=== PATIENT | female | born 1960 | race African-American/Black ===

== ENCOUNTER 2016-04-18 07:36 | Outpatient (CLI) | payer BC ==
--- NOTE | 2016-04-18 09:11 | Mammography Report ---
IMPLANT MAMMOGRAM with CAD: Comparison is made to previous study on April 07, 2015. Bilateral breast imaging was done with standard and displacement technique. Parenchyma is symmetrically seen ventral to each implant. The implant contours are smooth. No suspicious findings or secondary signs of malignancy are seen. CONCLUSION: Negative implant mammogram. RECOMMENDATION: Routine follow-up. BI-RADS CATEGORY: 1 = Negative ACR BI-RADS MAMMOGRAPHIC CODES: 0 = Needs additional imaging evaluation; 1 = Negative; 2 = Benign; 3 = Probably benign; 4 = Suspicious; 5 = Malignant; 6 = Known biopsy-proven malignancy COMMENT: 1. Dense breast tissue, i.e., adenosis, fibrocystic changes, etc., may obscure an underlying neoplasm. 2. Approximately 10% of cancers are not detected with mammography. 3. A negative mammography report should not delay biopsy if a clinically suspicious mass is present. Comment: Patient follow up letters are generated in [facility].
== END 2016-04-18 07:37 | disposition home or self-care (01) ==
LOC: MAMMO 07:36
PROVIDERS: ATTEND Internal Medicine
DX: Z12.31 Encounter for screening mammogram for malignant neoplasm of breast (principal)
CPT/HCPCS: 77067; G0202

== ENCOUNTER 2017-04-18 07:35 | Outpatient (CLI) | payer BC ==
--- NOTE | 2017-04-18 08:39 | Mammography Report ---
IMPLANT MAMMOGRAM: Bilateral breast imaging was done with standard and displacement technique. The breast parenchyma is generally fatty replaced and is symmetrically seen ventral to each implant. The submuscular implant contours are smooth. No suspicious findings or secondary signs of malignancy are seen. No interval change identified when compared to prior exams dating back to March 2015. CAD was utilized. CONCLUSION: Negative implant mammogram. RECOMMENDATION: Routine follow-up. BI-RADS CATEGORY: 1 = Negative ACR BI-RADS MAMMOGRAPHIC CODES: 0 = Needs additional imaging evaluation; 1 = Negative; 2 = Benign; 3 = Probably benign; 4 = Suspicious; 5 = Malignant; 6 = Known biopsy-proven malignancy COMMENT: 1. Dense breast tissue, i.e., adenosis, fibrocystic changes, etc., may obscure an underlying neoplasm. 2. Approximately 10% of cancers are not detected with mammography. 3. A negative mammography report should not delay biopsy if a clinically suspicious mass is present. COMMENT: Patient follow-up letters are generated in [email or web address].
== END 2017-04-18 07:36 | disposition home or self-care (01) ==
LOC: MAMMO 07:35
PROVIDERS: ATTEND Internal Medicine
DX: Z12.31 Encounter for screening mammogram for malignant neoplasm of breast (principal); Z98.82 Breast implant status
CPT/HCPCS: 77067

== ENCOUNTER 2017-05-23 12:22 | Emergency (ER) | payer BC ==
[2017-05-23 13:16] LABS: Basophils % (Auto) 0.3 % (0.0-1.8); Eosinophils # (Auto) 0.2 K/mm3 (0.0-0.4); Eosinophils % (Auto) 3.3 % (0.0-4.3); Hematocrit 41.4 % (30.3-42.9); Hemoglobin 13.5 gm/dl (10.1-14.3); Lymphocytes # (Auto) 2.5 K/mm3 (1.2-5.4); Lymphocytes % (Auto) 35.9 % (13.4-35.0); Mean Corpuscular HGB Conc 33 % (30-34); Mean Corpuscular Hemoglobin 30 pg (28-32); Mean Corpuscular Volume 93 fl (79-97); Monocytes # (Auto) 0.6 K/mm3 (0.0-0.8); Monocytes % (Auto) 8.6 % (0.0-7.3); Platelet Count 303 K/mm3 (140-440); Red Blood Count 4.45 M/mm3 (3.65-5.03); Red Cell Distribution Width 13.4 % (13.2-15.2)
[2017-05-23 13:27] LABS: INR 0.88 (0.87-1.13)
[2017-05-23 13:28] LABS: Partial Thromboplastin Time 32.3 Sec. (24.2-36.6)
[2017-05-23 13:36] LABS: Alanine Aminotransferase 12 units/L (7-56); Albumin 3.7 g/dL (3.9-5); BUN/Creatinine Ratio 26; Blood Urea Nitrogen 18 mg/dL (7-17); Calcium 9.1 mg/dL (8.4-10.2); Hemolysis Index 8
[2017-05-23 13:39] LABS: Bilirubin,Direct < 0.2 mg/dL (0-0.2)
--- NOTE | 2017-05-23 13:56 | XRay Report ---
AP CHEST: HISTORY: chest pain AP view of the chest demonstrates a normal mediastinal and cardiac contour with clear lungs and normal bony and soft tissue structures. IMPRESSION: Unremarkable AP chest.
--- NOTE | 2017-05-23 14:09 | Emergency Department Report ---
ED General Adult HPI - General Chief complaint: Arrhythmia/Palpitations Stated complaint: CHEST PAIN Time Seen by Provider: 05/23/17 12:38 Source: patient Mode of arrival: Ambulatory Limitations: No Limitations - History of Present Illness Initial comments: Patient reports having tachycardia since last night. She states he's had some difficulty sleeping but otherwise does not complain of any substantial chest pain or shortness of breath. She arrives here with SVT at 170. Her states that back in approximately 1999 she had a similar episode. She does not have a hand alterations tailor. She states that she has never been found to have anything wrong with her heart. She has a history of hypothyroidism. She hasn't had a change in her medication for the last 7 months. She doesn't report any other specific change or symptoms. -: Sudden Associated Symptoms: denies other symptoms - Related Data Home Medications Medication Instructions Recorded Confirmed Last Taken Benzonatate 100 mg PO TID 11/22/15 11/22/15 11/22/15 06:00 Levothyroxine [Synthroid] 75 mcg PO QAM 11/22/15 11/22/15 11/22/15 06:00 NIFEdipine [Nifedipine ER] 30 mg PO DAILY 11/22/15 11/22/15 11/21/15 Prednisone 10 mg PO BID 11/22/15 11/22/15 11/22/15 06:00 Allergies Allergy/AdvReac Type Severity Reaction Status Date / Time No Known Allergies Allergy Verified 05/23/17 12:30 ED Review of Systems ROS: Stated complaint: CHEST PAIN Other details as noted in HPI Constitutional: denies: chills, fever Eyes: denies: eye pain, eye discharge, vision change ENT: denies: ear pain, throat pain Respiratory: denies: cough, shortness of breath, wheezing Cardiovascular: other (tachycardia). denies: chest pain, palpitations Endocrine: no symptoms reported Gastrointestinal: denies: abdominal pain, nausea, diarrhea Genitourinary: denies: urgency, dysuria, discharge Musculoskeletal: denies: back pain, joint swelling, arthralgia Skin: denies: rash, lesions Neurological: denies: headache, weakness, paresthesias Psychiatric: denies: anxiety, depression Hematological/Lymphatic: denies: easy bleeding, easy bruising ED Past Medical Hx - Past Medical History Hx Hypertension: Yes Additional medical history: Hypothyroidism, SVT - Social History Smoking Status: Never Smoker - Medications Home Medications: Home Medications Medication Instructions Recorded Confirmed Last Taken Type Benzonatate 100 mg PO TID 11/22/15 11/22/15 11/22/15 06:00 History Levothyroxine [Synthroid] 75 mcg PO QAM 11/22/15 11/22/15 11/22/15 06:00 History NIFEdipine [Nifedipine ER] 30 mg PO DAILY 11/22/15 11/22/15 11/21/15 History Prednisone 10 mg PO BID 11/22/15 11/22/15 11/22/15 06:00 History ED Physical Exam - General Limitations: No Limitations General appearance: alert, in no apparent distress - Head Head exam: Present: atraumatic, normocephalic - Eye Eye exam: Present: normal appearance - ENT ENT exam: Present: mucous membranes moist - Neck Neck exam: Present: normal inspection - Respiratory Respiratory exam: Present: normal lung sounds bilaterally. Absent: respiratory distress - Cardiovascular Cardiovascular Exam: Present: tachycardia (regular rhythm). Absent: systolic murmur, diastolic murmur, rubs, gallop - GI/Abdominal GI/Abdominal exam: Present: soft, normal bowel sounds. Absent: distended, tenderness, guarding, rebound, rigid - Extremities Exam Extremities exam: Present: normal inspection - Back Exam Back exam: Present: normal inspection - Neurological Exam Neurological exam: Present: alert, oriented X3, CN II-XII intact. Absent: motor sensory deficit - Psychiatric Psychiatric exam: Present: normal affect, normal mood - Skin Skin exam: Present: warm, dry, intact, normal color. Absent: rash ED Course Vital Signs 05/23/17 12:30 Temperature 97.7 F Pulse Rate 173 H Respiratory 24 Rate O2 Sat by Pulse 100 Oximetry - Reevaluation(s) Reevaluation #1: Patient is given 6 mg of adenosine which successfully converted her back to sinus rhythm. She was observed for a few hours. She had no recurrence. She remained asymptomatic. 05/23/17 15:23 ED Medical Decision Making - Lab Data Result diagrams: 05/23/17 13:02 05/23/17 13:02 Laboratory Results - last 24 hr 05/23/17 05/23/17 05/23/17 13:02 13:02 13:02 WBC 6.8 RBC 4.45 Hgb 13.5 Hct 41.4 MCV 93 MCH 30 MCHC 33 RDW 13.4 Plt Count 303 Lymph % (Auto) 35.9 H Kane % (Auto) 8.6 H Eos % (Auto) 3.3 Baso % (Auto) 0.3 Lymph # 2.5 Kane # 0.6 Eos # 0.2 Baso # 0.0 Seg Neutrophils % 51.9 Seg Neutrophils # 3.5 PT 12.4 INR 0.88 APTT 32.3 Sodium 139 Potassium 4.3 Chloride 101.3 Carbon Dioxide 24 Anion Gap 18 BUN 18 H Creatinine 0.7 Estimated GFR > 60 BUN/Creatinine Ratio 26 Glucose 125 H Calcium 9.1 Total Bilirubin 0.40 Direct Bilirubin < 0.2 AST 13 ALT 12 Alkaline Phosphatase 80 Troponin T < 0.010 Total Protein 7.4 Albumin 3.7 L Albumin/Globulin Ratio 1.0 Laboratory Results - last 24 hr 05/23/17 05/23/17 05/23/17 13:02 13:02 13:02 WBC 6.8 RBC 4.45 Hgb 13.5 Hct 41.4 MCV 93 MCH 30 MCHC 33 RDW 13.4 Plt Count 303 Lymph % (Auto) 35.9 H Kane % (Auto) 8.6 H Eos % (Auto) 3.3 Baso % (Auto) 0.3 Lymph # 2.5 Kane # 0.6 Eos # 0.2 Baso # 0.0 Seg Neutrophils % 51.9 Seg Neutrophils # 3.5 PT 12.4 INR 0.88 APTT 32.3 Sodium 139 Potassium 4.3 Chloride 101.3 Carbon Dioxide 24 Anion Gap 18 BUN 18 H Creatinine 0.7 Estimated GFR > 60 BUN/Creatinine Ratio 26 Glucose 125 H Calcium 9.1 Total Bilirubin 0.40 Direct Bilirubin < 0.2 AST 13 ALT 12 Alkaline Phosphatase 80 Troponin T < 0.010 Total Protein 7.4 Albumin 3.7 L Albumin/Globulin Ratio 1.0 TSH Free T4 05/23/17 13:02 WBC RBC Hgb Hct MCV MCH MCHC RDW Plt Count Lymph % (Auto) Kane % (Auto) Eos % (Auto) Baso % (Auto) Lymph # Kane # Eos # Baso # Seg Neutrophils % Seg Neutrophils # PT INR APTT Sodium Potassium Chloride Carbon Dioxide Anion Gap BUN Creatinine Estimated GFR BUN/Creatinine Ratio Glucose Calcium Total Bilirubin Direct Bilirubin AST ALT Alkaline Phosphatase Troponin T Total Protein Albumin Albumin/Globulin Ratio TSH 0.991 Free T4 1.48 H - EKG Data -: EKG Interpreted by Me EKG shows normal: sinus rhythm, axis, intervals, QRS complexes, ST-T waves Rate: normal - EKG Data Interpretation: no acute changes Initial EKG showed SVT at 170. Post-cardioversion EKG showed normal sinus rhythm without evidence of ischemia. 05/23/17 15:23 - Radiology Data Radiology results: report reviewed (no acute process chest x-ray) Critical care attestation.: If time is entered above; I have spent that time in minutes in the direct care of this critically ill patient, excluding procedure time. ED Disposition Clinical Impression: Supraventricular tachycardia Disposition: - TO HOME OR SELFCARE Is pt being admited?: No Does the pt Need Aspirin: No Condition: Stable Instructions: Supraventricular Tachycardia (ED) Additional Instructions: Return to the emergency department any recurrence or acute change her symptom. Follow-up with hand alterations tailor. See referral. Referrals: ALEXANDRIA MACARIO MD [Staff Physician] - 3-5 Days Time of Disposition: 15:24
[2017-05-23 14:16] LABS: Free T4 (Free Thyroxine) 1.48 ng/dL (0.76-1.46)
[2017-05-23 16:02] VITALS: BP 142/96
== END 2017-05-23 15:55 | disposition home or self-care (01) ==
LOC: ED 12:22
DX: I47.1 Supraventricular tachycardia (principal); I10 Essential (primary) hypertension; E03.9 Hypothyroidism, unspecified
CPT/HCPCS: 36415; 71045; 80048; 80074; 84439; 84443; 84484; 85025; 85610; 85730; 93005; 93010; 96374; 99284; J0153

== ENCOUNTER 2017-06-04 07:41 | Outpatient (CLI) | payer BC ==
--- NOTE | 2017-06-04 13:30 | Treadmill Report ---
This is a 56-year-old female who underwent stress testing with myocardial perfusion images obtained at rest and post-stress test. Myocardial images performed using technetium pyrophosphate were obtained during the rest followed by exercise test and post-stress images were obtained. Myocardial perfusion images showed uniform distribution of the tracer in both resting and post-stress images. Imaging shows normal perfusion. Gated post-stress SPECT images were obtained, which showed normal thickening and normal size of the left ventricle with calculated ejection fraction of 71%. FINAL IMPRESSION: 1. Normal perfusion images post-stress and at rest. 2. Normal left ventricular systolic function with a calculated EF of 71% post-stress. JOB# [id number] STACEY/JUAN
== END 2017-06-04 07:42 | disposition home or self-care (01) ==
LOC: ECHO 07:41
PROVIDERS: ATTEND Internal Medicine
DX: I08.1 Rheumatic disorders of both mitral and tricuspid valves (principal); I10 Essential (primary) hypertension; R94.31 Abnormal electrocardiogram [ECG] [EKG]
CPT/HCPCS: 78452; 93017; 93306; A9502

== ENCOUNTER 2018-04-20 07:41 | Outpatient (CLI) | payer BC ==
--- NOTE | 2018-04-20 13:11 | Mammography Report ---
BILATERAL DIGITAL AUGMENTED SCREENING MAMMOGRAM with CAD: 04/20/18 07:41:00 CLINICAL: Routine screening. COMPARISON:04/18/17 FINDINGS: Screening views with and without implant displacement demonstrate bilateral scattered fibroglandular densities. No mass, architectural distortion or suspicious calcifications. Intact subpectoral implants. IMPRESSION: No mammographic evidence of malignancy. BI-RADS CATEGORY: 2 -- Benign RECOMMENDATION: Routine mammographic screening in one year. ACR BI-RADS MAMMOGRAPHIC CODES: 0 = Needs additional imaging evaluation; 1 = Negative; 2 = Benign; 3 = Probably benign; 4 = Suspicious; 5 = Malignant; 6 = Known biopsy-proven malignancy COMMENT: 1. Dense breast tissue, i.e., adenosis, fibrocystic changes, etc., may obscure an underlying neoplasm. 2. Approximately 10% of cancers are not detected with mammography. 3. A negative mammography report should not delay biopsy if a clinically suspicious mass is present. COMMENT: Patient follow-up letters are generated via our [employer] application.
== END 2018-04-20 07:42 | disposition home or self-care (01) ==
LOC: MAMMO 07:41
PROVIDERS: ATTEND Internal Medicine
DX: Z12.31 Encounter for screening mammogram for malignant neoplasm of breast (principal); I10 Essential (primary) hypertension; E78.00 Pure hypercholesterolemia, unspecified; E03.9 Hypothyroidism, unspecified
CPT/HCPCS: 77067

== ENCOUNTER 2018-11-22 18:57 | Emergency (ER) | payer BC ==
--- NOTE | 2018-11-22 19:32 | Event Note ---
ED Screening Note Date of service: 11/22/18 Time: 19:28 ED Screening Note: This is a 58 y.o. F. that presents to the ER with cough, fever, and body aches for 3 days. Reports cough fro 6 months intermittently. Taking analgesics without improvement of symptoms. This initial assessment/diagnostic orders/clinical plan/treatment(s) is/are subject to change based on patients health status, clinical progression and re- assessment by fellow clinical providers in the ED. Further treatment and workup at subsequent clinical providers discretion. Patient/guardian urged not to elope from the ED as their condition may be serious if not clinically assessed and managed. Initial orders include: CXR and rapid flu
--- NOTE | 2018-11-22 20:13 | XRay Report ---
CHEST 2 VIEWS INDICATION: MAIN: cough for 1 week. COMPARISON: Chest x-ray from 05/23/2017 FINDINGS: Support devices: None. Heart: Within normal limits. Lungs/pleura: Mild bilateral central peribronchial thickening without consolidation or effusion. No pneumothorax. Additional findings: None. IMPRESSION: 1. Mild bilateral central peribronchial thickening can be seen with tracheobronchitis. Signer Name: Jefry Courtney MD Signed: 11/22/2018 8:08 PM Workstation Name: [id number]
--- NOTE | 2018-11-22 22:26 | Emergency Department Report ---
Minor Respiratory - HPI Chief Complaint: Upper Respiratory Infection Stated Complaint: FLU LIKE SYMPTOMS Time Seen by Provider: 11/22/18 19:28 Duration: cough on and off 6 months, headache body aches fever over the last 3 days. Pain Location: Other (headache and body ache at 10/10) Severity: severe Minor Respiratory: Yes Rhinorrhea (nasal congestion), Yes Able to Tolerate Fluids, Yes Cough (dry cough), Yes Fever, No Sore Throat, No Ear Pain, No Sick Contacts, No Hemoptysis, No Chest Pain, No Shortness of Breath Other History: This is a 58-year-old female reports that she has cough on and off for the last 6 months and she was seen at the medical facility and treated for bronchitis last year and similar cough. She also reports that over the last 3 days should be noted body ache fever and chills but she did not actually take her temperature with worsening cough. Denies any abdominal back pain. Denies any chest pain, difficulty breathing or sore throat. Ports wheezing. Patient said they gave her albuterol last week and she has been using that but this has not been helping. She has a history of high blood pressure and low thyroid. Pain is 10 out of 10 located forehead and feels like pressure. She has generalized aching. No alleviating or exacerbating factors and uses albuterol before she came to the emergency room ED Review of Systems ROS: Stated complaint: FLU LIKE SYMPTOMS Other details as noted in HPI Constitutional: chills, fever Eyes: denies: eye discharge, vision change ENT: congestion. denies: ear pain, throat pain Respiratory: cough, wheezing. denies: orthopnea, shortness of breath, SOB with exertion, SOB at rest, stridor Cardiovascular: denies: chest pain, palpitations, dyspnea on exertion, orthopnea, edema Gastrointestinal: denies: abdominal pain, nausea, vomiting Musculoskeletal: myalgia. denies: back pain, joint swelling, arthralgia Skin: denies: rash Neurological: headache. denies: weakness, numbness, paresthesias, confusion, abnormal gait, vertigo ED Past Medical Hx - Past Medical History Previous Medical History?: Yes Hx Hypertension: Yes Additional medical history: Hypothyroidism, SVT. Bronchitis - Surgical History Past Surgical History?: No - Family History Family history: no significant - Social History Smoking Status: Never Smoker Substance Use Type: None - Medications Home Medications: Home Medications Medication Instructions Recorded Confirmed Last Taken Type Levothyroxine [Synthroid] 75 mcg PO QAM 11/22/15 11/22/15 11/22/15 06:00 History NIFEdipine [Nifedipine ER] 30 mg PO DAILY 11/22/15 11/22/15 11/21/15 History Famotidine [Pepcid] 40 mg PO QHS #20 tablet 03/08/18 Unknown Rx Mometasone Furoate [Elocon] 45 gm TP BID #1 cream..g. 03/08/18 Unknown Rx hydrOXYzine HCL [Atarax] 25 mg PO Q6HR PRN #20 tablet 03/08/18 Unknown Rx Prednisone [predniSONE 10 mg 10 mg PO .TAPER #1 tab.ds.pk 03/16/18 Unknown Rx (6-Day Pack, 21 Tabs)] ALBUTEROL Inhaler (OR & NICU) 2 puff IH Q6H PRN #1 inhalation 11/23/18 Unknown Rx [ProAir HFA Inhaler] Azithromycin [Zithromax Z-MANUEL] 250 mg PO DAILY 5 Days #1 pkg 11/23/18 Unknown Rx Cetirizine HCl [ZyrTEC] 10 mg PO QAM 14 Days #14 capsule 11/23/18 Unknown Rx Fluticasone [Flonase] 1 spray NS QDAY 7 Days #1 bottle 11/23/18 Unknown Rx guaiFENesin/CODEINE [Robitussin AC] 10 ml PO QHS PRN #70 oral.liqd 11/23/18 Unknown Rx methylPREDNISolone [Medrol 4MG 4 mg PO QAM 6 Days #1 tab.ds.pk 11/23/18 Unknown Rx DOSEPAK (21 tabs)] Minor Respiratory Exam - Exam General: Vital signs noted. No distress. Alert and acting appropriately. This is a 58-year-old female well-nourished well-developed in no acute distress Head is normocephalic atraumatic HEENT: Yes Moist Mucous Membranes, Yes Rhinorrhea (nasal congestion with enlarged turbinates), No Pharyngeal Erythema, No Pharyngeal Exudates, No Conjuctival Injection, No Frontal Tenderness, No Maxillary Tenderness Ear: Neither TM Bulge (sharon middle ear effusion), Neither TM Erythema, Neither EAC Pain, Neither EAC Discharge Neck: Yes Supple (nontender to palpate in no C-spine tenderness. Full range of motion without crepitus), No Adenopathy Lungs: Yes Good Air Exchange, Yes Wheezes (please into lung field), Yes Cough (congested cough), No Ronchi, No Stridor, No Labored Respirations, No Retractions, No Use of Accessory Muscles, No Other Abnormal Lung Sounds Heart: Yes Regular, No Murmur Abdomen: Yes Normal Bowel Sounds (in all quadrants), No Tenderness, No Peritoneal Signs Skin: No Rash, No Edema Neurologic: Alert and oriented, no deficits. Alert and oriented 3, GCS is 15, negative Romberg and negative pronator drift. Normal gait. Speech is clear and fluid Musculoskeletal: Unremarkable. No cce. + 2 pulses in all extremities, no neurovascular compromise ED Course Vital Signs 11/22/18 11/22/18 19:07 19:08 Temperature 98.5 F Pulse Rate 72 68 Respiratory 18 Rate Blood Pressure 133/80 O2 Sat by Pulse 98 98 Oximetry - Reevaluation(s) Reevaluation #1: 11/22/18 23:49 Patient given Xopenex 1.26 mg nebulizer, Atrovent 1 mg nebulizer, Decadron 10 mg IM and started on antibiotic and given Rocephin 1 g IM in emergency room for bronchitis which is recurring. She says she is feeling better. She was also ordered Tylenol 975 mg by mouth for headache. Reevaluation #2: 11/22/18 23:59 Patient reevaluated after Xopenex and other medication given in her lung sounds are clear and she says she is feeling better Tylenol helps headache ED Medical Decision Making - Radiology Data Radiology results: report reviewed Patient had chest x-ray that was dictated by radiologist and reports reviewed by myself. Findings [facility] [address] [place] [address] XRay Report Signed Patient: TROY FOY MR#: [id number] : 1960 Acct:[id number] Age/Sex: 58 / F ADM Date: 11/22/18 Loc: ED Attending Dr: Ordering Physician: JAMES CABALLERO Date of Service: 11/22/18 Procedure(s): XR chest routine 2V Accession Number(s): [id number] cc: DYANA GARCIA, WASH RACK OPERATOR Fluoro Time In Minutes: CHEST 2 VIEWS INDICATION: MAIN: cough for 1 week. COMPARISON: Chest x-ray from 05/23/2017 FINDINGS: Support devices: None. Heart: Within normal limits. Lungs/pleura: Mild bilateral central peribronchial thickening without consolidation or effusion. No pneumothorax. Additional findings: None. IMPRESSION: 1. Mild bilateral central peribronchial thickening can be seen with tracheobronchitis. Signer Name: Jefry Courtney MD Signed: 11/22/2018 8:08 PM Workstation Name: [id number] Transcribed By: RICKY Dictated By: Jefry Courtney MD Electronically Authenticated By: Jefry Courtney MD Signed Date/Time: 11/22/182007 - Medical Decision Making This is a 58-year-old female here for cough and cold symptoms and found to have tracheobronchitis. Patient does have a primary care physician Dr. Kern and I told her to call tomorrow to schedule appointment for follow-up visit in 1 day and she voiced understanding. She was given Xopenex nebulizer treatment along with Atrovent and emergency room, Decadron and Tylenol and she is feeling better. Patient did not run a fever while she is here. Upon reevaluation her lung sounds are clear and she still has cough. I discussed x-ray that was dictated by radiologist and reviewed by myself and I told her that she has bronchitis which is recurrent so she needs to have her primary care refer her to a community living specialist to have pulmonary function tests and also she needs to go to see allergies to have skin testing done. Patient discharged home in stable condition with her family with prescription for Z-Manuel, Flonase, Zyrtec, albuterol and Medrol Dosepak. She was also prescribed off medicine with codeine cough syrup to take at night when necessary - Differential Diagnosis PNA, bronchitis, discitis, rhinitis, URI with cough and congestion Critical care attestation.: If time is entered above; I have spent that time in minutes in the direct care of this critically ill patient, excluding procedure time. ED Disposition Clinical Impression: Bronchitis, Cough in adult patient Disposition: DC-01 TO HOME OR SELFCARE Is pt being admited?: No Does the pt Need Aspirin: No Condition: Stable Instructions: Chronic Bronchitis (ED), Acute Cough (ED) Additional Instructions: Please take medication as prescribed F/U with primary care physician Dr. Kern in the morning. He will need to be referred by primary care to internal medicine nurse practitioner for allergy testing and also to along doctor to have of common her function tests due to recurrent bronchitis Please do not drive or operate heavy machinery while taking cough medicine as this medication causes drowsiness If your condition worsens, return to the emergency room Referrals: PRIMARY CARE, [Primary Care Provider] - 11/24/18 MATEO SANDOVAL MD [Staff Physician] - 2-3 Days Forms: Work/School Release Form(ED), Accompanied Note
[2018-11-22] MEDS ORDERED: ATROVENT IH ONE (22:27)
[2018-11-22] MEDS ORDERED: XYLOCAINE 1% MPF 5 mL INFILTRATI ONE (22:27)
[2018-11-22] MEDS ORDERED: DECADRON IM STA (22:27)
[2018-11-22] MEDS ORDERED: BENADRYL IM ONE (22:27)
[2018-11-22] MEDS ORDERED: XOPENEX IH ONE (22:27)
[2018-11-22] MEDS ORDERED: ROCEPHIN IM SCH (22:30)
[2018-11-22] MEDS ORDERED: TYLENOL PO ONE (23:44)
[2018-11-23] MEDS ORDERED: DECADRON ONE (00:32)
[2018-11-23] MEDS ORDERED: BENADRYL PO ONE (00:32)
[2018-11-23] MEDS ORDERED: XYLOCAINE 1% MPF 5 mL ONE ×2 (00:34→00:38)
[2018-11-23] MEDS ORDERED: ROCEPHIN IM ONE (00:38)
[2018-11-23 00:55] VITALS: BP 136/81
[2018-11-23] MEDS ORDERED: BENADRYL ONE (00:55)
== END 2018-11-23 01:15 | disposition home or self-care (01) ==
LOC: ED 18:57
DX: J40 Bronchitis, not specified as acute or chronic (principal); I10 Essential (primary) hypertension; E03.9 Hypothyroidism, unspecified; Z79.899 Other long term (current) drug therapy
CPT/HCPCS: 71046; 87400; 94640; 96372; 99284; J0696; J1100; J1200; 94644

== ENCOUNTER 2019-01-26 07:46 | Outpatient (CLI) | payer BC ==
[2019-01-26 08:11] LABS: Hematocrit 37.4 % (30.3-42.9); Hemoglobin 12.6 gm/dl (10.1-14.3); Mean Corpuscular HGB Conc 34 % (30-34); Mean Corpuscular Volume 91 fl (79-97); Platelet Count 341 K/mm3 (140-440); Red Blood Count 4.09 M/mm3 (3.65-5.03); Red Cell Distribution Width 12.8 % (13.2-15.2)
[2019-01-26 08:28] LABS: Alanine Aminotransferase 21 units/L (7-56); Albumin 4.3 g/dL (3.9-5); BUN/Creatinine Ratio 38; Blood Urea Nitrogen 23 mg/dL (7-17); Calcium 9.4 mg/dL (8.4-10.2); HDL Cholesterol 35 mg/dL (40-59); Hemolysis Index 3; LDL Cholesterol,Direct 140 mg/dL (50-130)
[2019-01-26 08:41] LABS: Free T4 (Free Thyroxine) 1.74 ng/dL (0.76-1.46)
[2019-01-26 10:33] LABS: Hepatitis B Surface Antigen Non-Reactive (Negative); Hepatitis C Virus Antibody Non-Reactive (NonReactive)
== END 2019-01-26 07:47 | disposition home or self-care (01) ==
LOC: LAB 07:46
PROVIDERS: ATTEND Internal Medicine
DX: Z13.220 Encounter for screening for lipoid disorders (principal); Z13.228 Encounter for screening for other metabolic disorders; Z13.0 Encounter for screening for diseases of the blood and blood-forming organs and certain disorders involving the immune mechanism; Z13.21 Encounter for screening for nutritional disorder; I10 Essential (primary) hypertension
CPT/HCPCS: 36415; 80053; 80061; 80074; 82652; 83036; 84439; 84443; 85027

== ENCOUNTER 2019-02-25 22:51 | Emergency (ER) | payer BC ==
[2019-02-26] MEDS ORDERED: KETOROLAC 60 MG/2 ML INJ IM ONE (00:19)
[2019-02-26] MEDS ORDERED: PENICILLIN G BENZATHINE 1.2 MILLION UNIT/2 ML INJ IM ONE (00:21)
--- NOTE | 2019-02-26 00:27 | Emergency Department Report ---
ED ENT HPI - General Chief complaint: Fever Stated complaint: FEVER,SORE THROAT X 2DAYS Time Seen by Provider: 02/26/19 00:13 Source: patient Mode of arrival: Ambulatory Limitations: No Limitations - History of Present Illness Initial comments: 58-year-old female presents to the hospital complaining of throat pain and fever 2 days. Patient taken Tylenol with temporary reduction in temperature. She complains of occasional cough. Positive generalized body aches. Patient is a nurse here at the hospital. - Related Data Home Medications Medication Instructions Recorded Confirmed Last Taken Levothyroxine [Synthroid] 75 mcg PO QAM 11/22/15 11/22/15 11/22/15 06:00 NIFEdipine [Nifedipine ER] 30 mg PO DAILY 11/22/15 11/22/15 11/21/15 Previous Rx's Medication Instructions Recorded Last Taken Type Famotidine [Pepcid] 40 mg PO QHS #20 tablet 03/08/18 Unknown Rx Mometasone Furoate [Elocon] 45 gm TP BID #1 cream..g. 03/08/18 Unknown Rx hydrOXYzine HCL [Atarax] 25 mg PO Q6HR PRN #20 tablet 03/08/18 Unknown Rx Prednisone [predniSONE 10 mg 10 mg PO .TAPER #1 tab.ds.pk 03/16/18 Unknown Rx (6-Day Pack, 21 Tabs)] ALBUTEROL Inhaler (OR & NICU) 2 puff IH Q6H PRN #1 inhalation 11/23/18 Unknown Rx [ProAir HFA Inhaler] Azithromycin [Zithromax Z-ISSAC] 250 mg PO DAILY 5 Days #1 pkg 11/23/18 Unknown Rx Cetirizine HCl [ZyrTEC] 10 mg PO QAM 14 Days #14 capsule 11/23/18 Unknown Rx Fluticasone [Flonase] 1 spray NS QDAY 7 Days #1 bottle 11/23/18 Unknown Rx guaiFENesin/CODEINE [Robitussin AC] 10 ml PO QHS PRN #70 oral.liqd 11/23/18 Unknown Rx methylPREDNISolone [Medrol 4MG 4 mg PO QAM 6 Days #1 tab.ds.pk 11/23/18 Unknown Rx DOSEPAK (21 tabs)] Ibuprofen [Motrin] 800 mg PO Q8HR PRN #20 tablet 02/26/19 Unknown Rx Allergies Allergy/AdvReac Type Severity Reaction Status Date / Time No Known Allergies Allergy Verified 05/23/17 12:30 ED Dental HPI - General Chief complaint: Fever Stated complaint: FEVER,SORE THROAT X 2DAYS Time Seen by Provider: 02/26/19 00:13 Source: patient Mode of arrival: Ambulatory Limitations: No Limitations - Related Data Home Medications Medication Instructions Recorded Confirmed Last Taken Levothyroxine [Synthroid] 75 mcg PO QAM 11/22/15 11/22/15 11/22/15 06:00 NIFEdipine [Nifedipine ER] 30 mg PO DAILY 11/22/15 11/22/15 11/21/15 Previous Rx's Medication Instructions Recorded Last Taken Type Famotidine [Pepcid] 40 mg PO QHS #20 tablet 03/08/18 Unknown Rx Mometasone Furoate [Elocon] 45 gm TP BID #1 cream..g. 03/08/18 Unknown Rx hydrOXYzine HCL [Atarax] 25 mg PO Q6HR PRN #20 tablet 03/08/18 Unknown Rx Prednisone [predniSONE 10 mg 10 mg PO .TAPER #1 tab.ds.pk 03/16/18 Unknown Rx (6-Day Pack, 21 Tabs)] ALBUTEROL Inhaler (OR & NICU) 2 puff IH Q6H PRN #1 inhalation 11/23/18 Unknown Rx [ProAir HFA Inhaler] Azithromycin [Zithromax Z-ISSAC] 250 mg PO DAILY 5 Days #1 pkg 11/23/18 Unknown Rx Cetirizine HCl [ZyrTEC] 10 mg PO QAM 14 Days #14 capsule 11/23/18 Unknown Rx Fluticasone [Flonase] 1 spray NS QDAY 7 Days #1 bottle 11/23/18 Unknown Rx guaiFENesin/CODEINE [Robitussin AC] 10 ml PO QHS PRN #70 oral.liqd 11/23/18 Unknown Rx methylPREDNISolone [Medrol 4MG 4 mg PO QAM 6 Days #1 tab.ds.pk 11/23/18 Unknown Rx DOSEPAK (21 tabs)] Ibuprofen [Motrin] 800 mg PO Q8HR PRN #20 tablet 02/26/19 Unknown Rx Allergies Allergy/AdvReac Type Severity Reaction Status Date / Time No Known Allergies Allergy Verified 05/23/17 12:30 ED Review of Systems ROS: Stated complaint: FEVER,SORE THROAT X 2DAYS Other details as noted in HPI Comment: All other systems reviewed and negative ED Past Medical Hx - Past Medical History Previous Medical History?: Yes Hx Hypertension: Yes Additional medical history: Hypothyroidism, SVT. Bronchitis - Surgical History Past Surgical History?: No - Social History Smoking Status: Never Smoker Substance Use Type: None - Medications Home Medications: Home Medications Medication Instructions Recorded Confirmed Last Taken Type Levothyroxine [Synthroid] 75 mcg PO QAM 11/22/15 11/22/15 11/22/15 06:00 History NIFEdipine [Nifedipine ER] 30 mg PO DAILY 11/22/15 11/22/15 11/21/15 History Famotidine [Pepcid] 40 mg PO QHS #20 tablet 03/08/18 Unknown Rx Mometasone Furoate [Elocon] 45 gm TP BID #1 cream..g. 03/08/18 Unknown Rx hydrOXYzine HCL [Atarax] 25 mg PO Q6HR PRN #20 tablet 03/08/18 Unknown Rx Prednisone [predniSONE 10 mg 10 mg PO .TAPER #1 tab.ds.pk 03/16/18 Unknown Rx (6-Day Pack, 21 Tabs)] ALBUTEROL Inhaler (OR & NICU) 2 puff IH Q6H PRN #1 inhalation 11/23/18 Unknown Rx [ProAir HFA Inhaler] Azithromycin [Zithromax Z-ISSAC] 250 mg PO DAILY 5 Days #1 pkg 11/23/18 Unknown Rx Cetirizine HCl [ZyrTEC] 10 mg PO QAM 14 Days #14 capsule 11/23/18 Unknown Rx Fluticasone [Flonase] 1 spray NS QDAY 7 Days #1 bottle 11/23/18 Unknown Rx guaiFENesin/CODEINE [Robitussin AC] 10 ml PO QHS PRN #70 oral.liqd 11/23/18 Unknown Rx methylPREDNISolone [Medrol 4MG 4 mg PO QAM 6 Days #1 tab.ds.pk 11/23/18 Unknown Rx DOSEPAK (21 tabs)] Ibuprofen [Motrin] 800 mg PO Q8HR PRN #20 tablet 02/26/19 Unknown Rx ED Physical Exam - General Limitations: No Limitations - Other Other exam information: General: No acute distress Head: Atraumatic Eyes: normal appearance ENT: Bilateral tonsillar exudates without significant adenopathy Neck: Normal appearance, no midline tenderness tonsillar swelling. Uvula midline. Tender lymphadenopathy CV: Regular rate and rhythm Abdomen: Soft, normal bowel sounds, nontender, nondistended, no rebound or guarding Back: Normal inspection Extremity: Normal inspection infection, full range of motion Neuro: Alert O x 3, no facial asymmetry, speech clear, no gross motor sensory deficit Psych: Appropriate behavior Skin: No rash ED Course Vital Signs 02/25/19 22:55 Temperature 99.9 F H Pulse Rate 92 H Respiratory 20 Rate Blood Pressure 137/79 O2 Sat by Pulse 96 Oximetry ED Medical Decision Making - Medical Decision Making Patient treated empirically for strep throat given tonsillar exudates and reports of fever. Toradol provided for pain. She will be discharged with outpatient follow-up - Differential Diagnosis viral syndrome, strep throat, pharyngitis Critical Care Time: No Critical care attestation.: If time is entered above; I have spent that time in minutes in the direct care of this critically ill patient, excluding procedure time. ED Disposition Clinical Impression: Tonsillar exudate Disposition: DC-01 TO HOME OR SELFCARE Is pt being admited?: No Does the pt Need Aspirin: No Condition: Stable Instructions: Tonsillitis (ED) Additional Instructions: Take the medication as prescribed. Follow-up with your doctor or doctor/clinic provided. Return if symptoms worsen as indicated by your discharge instructions. Prescriptions: Ibuprofen [Motrin] 800 mg PO Q8HR PRN #20 tablet PRN Reason: Pain, Moderate (4-6) Referrals: RILEY ODONNELL MD [Staff Physician] - 3-5 Days your, primary care doctor [Other] - 3-5 Days Time of Disposition: 00:26
[2019-02-26 00:29] VITALS: BP 113/63
== END 2019-02-26 01:20 | disposition home or self-care (01) ==
LOC: ED 22:51
DX: J35.8 Other chronic diseases of tonsils and adenoids (principal); I10 Essential (primary) hypertension; Z79.899 Other long term (current) drug therapy
CPT/HCPCS: 96372; 99281; J0561; J1885

== ENCOUNTER 2019-04-29 07:38 | Outpatient (CLI) | payer BC ==
--- NOTE | 2019-04-29 08:21 | Mammography Report ---
DIGITAL SCREENING MAMMOGRAM WITH CAD, 04/29/2019 INDICATION: Routine screening mammography. TECHNIQUE: Digital bilateral 2D mammography was obtained in the craniocaudal and mediolateral obliq ue projections without and with implant displacement. This examination was interpreted with the benef it of Computer-Aided Detection analysis. COMPARISON: 04/20/2018 and 04/18/2017 FINDINGS: Breast Density: There are scattered areas of fibroglandular density. Left asymmetries with architectural distortion on both views require additional imaging. No suspiciou s calcifications of the left breast. There is no evidence of dominant mass, suspicious calcifications or architectural distortion in the right breast. IMPRESSION: Left asymmetries and architectural distortion requiring additional imaging. Recommend rec all for left ML and spot magnification MLO and CC views and left breast ultrasound if needed. Follow up recommendation: Special View: Mag Category 0: Incomplete. Needs additional imaging evaluation and/or prior mammograms for comparison. A "normal" or negative report should not discourage follow up or biopsy of a clinically significant f inding. A written summary of these findings will be mailed to the patient. The patient will be entered into a mammography reporting system which will generate a reminder letter for the patient's next appointmen t at the appropriate interval. The [employer] recommends yearly mammograms starting at age 40 and continuing as l muriel as a woman is in good health. Breast MRI is recommended for women with an approximate 20-25% or greater lifetime risk of breast cancer, including women with a strong family history of breast or ova magaly cancer or who have been treated for Hodgkin's disease. Signer Name: Spencer Watts MD Signed: 04/29/2019 8:17 AM Workstation Name: [id number]
== END 2019-04-29 07:39 | disposition home or self-care (01) ==
LOC: MAMMO 07:38
PROVIDERS: ATTEND Internal Medicine
DX: Z12.31 Encounter for screening mammogram for malignant neoplasm of breast (principal); N64.89 Other specified disorders of breast
CPT/HCPCS: 77067

== ENCOUNTER 2020-05-01 07:54 | Outpatient (CLI) | payer BC ==
--- NOTE | 2020-05-01 09:11 | Mammography Report ---
DIGITAL SCREENING MAMMOGRAM WITH CAD, 05/01/2020 CLINICAL INFORMATION / INDICATION: Routine screening mammography. TECHNIQUE: Digital bilateral 2D mammography was obtained in the craniocaudal and mediolateral obliqu e projections. This examination was interpreted with the benefit of Computer-Aided Detection analysis . COMPARISON: Diagnostic left mammogram from 06/07/2019, screening mammograms from 04/29/2019 and 04/20/19 19 FINDINGS: Breast Density: There are scattered areas of fibroglandular density. No dominant mass, suspicious calcifications, or architectural distortion in either breast. Retropectoral silicone implants are intact. IMPRESSION: No mammographic evidence of malignancy. Follow up recommendation: Routine yearly BI-RADS Category 2: Benign. A "normal" or negative report should not discourage follow up or biopsy of a clinically significant f inding. A written summary of these findings will be mailed to the patient. The patient will be entered into a mammography reporting system which will generate a reminder letter for the patient's next appointmen t at the appropriate interval. The [employer] recommends yearly mammograms starting at age 40 and continuing as l muriel as a woman is in good health. Breast MRI is recommended for women with an approximate 20-25% or greater lifetime risk of breast cancer, including women with a strong family history of breast or ova magaly cancer or who have been treated for Hodgkin's disease. Signer Name: Peter Read MD Signed: 05/01/2020 9:06 AM Workstation Name: [id number]
== END 2020-05-01 07:55 | disposition home or self-care (01) ==
LOC: MAMMO 07:54
PROVIDERS: ATTEND Internal Medicine
DX: Z12.31 Encounter for screening mammogram for malignant neoplasm of breast (principal)
CPT/HCPCS: 77067

== ENCOUNTER 2020-05-12 09:29 | Outpatient (CLI) | payer BC ==
[2020-05-12 10:04] LABS: Hematocrit 37.7 % (30.3-42.9); Hemoglobin 12.8 gm/dl (10.1-14.3); Mean Corpuscular HGB Conc 34 % (30-34); Mean Corpuscular Volume 92 fl (79-97); Platelet Count 286 K/mm3 (140-440); Red Blood Count 4.11 M/mm3 (3.65-5.03)
[2020-05-12 10:25] LABS: Alanine Aminotransferase 23 units/L (7-56); Albumin 4.2 g/dL (3.9-5); Blood Urea Nitrogen 16 mg/dL (7-17); Calcium 9.3 mg/dL (8.4-10.2); Chol/HDL Ratio 4.21 %; HDL Cholesterol 47 mg/dL (40-59); Hemolysis Index 3; LDL Cholesterol,Direct 146 mg/dL (50-130)
[2020-05-12 10:26] LABS: BUN/Creatinine Ratio 23
== END 2020-05-12 09:30 | disposition home or self-care (01) ==
LOC: LAB 09:29
PROVIDERS: ATTEND Internal Medicine
DX: Z00.00 Encounter for general adult medical examination without abnormal findings (principal); R53.83 Other fatigue; E78.2 Mixed hyperlipidemia; E11.65 Type 2 diabetes mellitus with hyperglycemia; E55.9 Vitamin D deficiency, unspecified
CPT/HCPCS: 36415; 80053; 80061; 82306; 83036; 84443; 85027

== ENCOUNTER 2021-02-26 07:18 | Day surgery (SDC) | payer BC ==
[2021-02-26] MEDS ORDERED: SODIUM CHLORIDE 0.9% 1000 ML 1,000 ML ONE (07:54)
--- NOTE | 2021-02-26 08:14 | Anesthesia Consultation ---
Anesthesia Consult and Med Hx Date of service: 02/26/21 - Airway Anesthetic Teeth Evaluation: Dentures (upper and lower) ROM Head & Neck: Adequate Mental/Hyoid Distance: Adequate Mallampati Class: Class II Intubation Access Assessment: Probably Good - Pre-Operative Health Status ASA Pre-Surgery Classification: ASA2 Proposed Anesthetic Plan: MAC - Pulmonary Hx Smoking: No Hx Asthma: Yes Hx Sleep Apnea: No - Cardiovascular System Hx Hypertension: Yes - Central Nervous System Hx Psychiatric Problems: No - Endocrine Hx Hypothyroidism: Yes - Other Systems Hx Cancer: No
--- NOTE | 2021-02-26 08:15 | Anesthesia Day of Surgery ---
Anesthesia Day of Surgery - Day of Surgery Patient Examined: Yes Patient H&P Reviewed: Yes Patient is NPO: Yes
--- NOTE | 2021-02-26 08:29 | Short Stay Summary ---
Short Stay Documentation Date of service: 02/26/21 Narrative H&P: The patient presents for outpatient screening colonoscopy. no new gi complaints since clinic. - History Social history: no significant social history - Allergies and Medications Current Medications: Allergies No Known Allergies Allergy (Verified 05/23/17 12:30) Home Medications Medication Instructions Recorded Confirmed Last Taken Type Levothyroxine [Synthroid] 75 mcg PO QAM 11/22/15 11/22/15 11/22/15 06:00 History NIFEdipine [Nifedipine ER] 30 mg PO DAILY 11/22/15 11/22/15 11/21/15 History Famotidine [Pepcid] 40 mg PO QHS #20 tablet 03/08/18 Unknown Rx Mometasone Furoate [Elocon] 45 gm TP BID #1 cream..g. 03/08/18 Unknown Rx hydrOXYzine HCL [Atarax] 25 mg PO Q6HR PRN #20 tablet 03/08/18 Unknown Rx Prednisone [predniSONE 10 mg 10 mg PO .TAPER #1 tab.ds.pk 03/16/18 Unknown Rx (6-Day Pack, 21 Tabs)] Albuterol Mdi (or & Nicu Only) 2 puff IH Q6H PRN #1 inhalation 11/23/18 Unknown Rx [ProAir HFA Inhaler] Azithromycin [Zithromax Z-ISSAC] 250 mg PO DAILY 5 Days #1 pkg 11/23/18 Unknown Rx Cetirizine HCl [ZyrTEC] 10 mg PO QAM 14 Days #14 capsule 11/23/18 Unknown Rx Fluticasone [Flonase] 1 spray NS QDAY 7 Days #1 bottle 11/23/18 Unknown Rx guaiFENesin/CODEINE [Robitussin AC] 10 ml PO QHS PRN #70 oral.liqd 11/23/18 Unknown Rx methylPREDNISolone [Medrol 4MG 4 mg PO QAM 6 Days #1 tab.ds.pk 11/23/18 Unknown Rx DOSEPAK (21 tabs)] Ibuprofen [Motrin] 800 mg PO Q8HR PRN #20 tablet 02/26/19 Unknown Rx - Physical exam General appearance: no acute distress Lungs: Clear to auscultation Heart: Regular rate - Brief post op/procedure progress note Date of procedure: 02/26/21 Pre-op diagnosis: screening colonoscopy Post-op diagnosis: other (colon polyps removed) Procedure: colonoscopy with snare and biopsy polypectomy Anesthesia: MAC Findings: Colon polyps x 4 removed Surgeon: VASU LIRIANO Estimated blood loss: minimal Pathology: list (Jar A - ascending colon polyp, Jar B - cecal polyp, Jar C - transverse colon polyp, Jar D - rectal polyp) Specimen disposition: to lab Condition: stable - Disposition Condition at discharge: Good Disposition: 01 HOME / SELF CARE / HOMELESS Short Stay Discharge Plan Follow up with: DASIA LI MD [Primary Care Provider] - 7 Days
[2021-02-26] MEDS ORDERED: propofoL 200 MG/20 ML VIAL IV ONE ×2 (08:32→08:41)
[2021-02-26] MEDS ORDERED: LIDOCAINE MPF (2%) 20 MG/1 ML VIAL 5 ML ONE (08:33)
--- NOTE | 2021-02-26 09:01 | Operative Report ---
Operative Report Operative Report: Colonoscopy Procedure Note with Snare polypectomy and biopsy Date of procedure: 02/26/2021 Endoscopist: Aubrey James Pre-op diagnosis/indication: Screening for colorectal cancer Post-op diagnosis: Colon polyps removed, internal hemorrhoids MEDICATIONS: MAC COMPLICATIONS: No immediate complications ESTIMATED BLOOD LOSS: Minimal DESCRIPTION OF PROCEDURE: After consent was obtained, the patient was placed in the left lateral decubitis position. The olympus colonoscope was inserted into the rectum and advanced to the cecum without difficulty. The patient tolerated the procedure well. The views of the mucosa were good. The quality of prep was good. The patients vital signs were monitored continuously throughout the procedure. FINDINGS: There was an ~1 mm sessile polyp in the cecum. The polyp was removed with cold biopsy forceps and retrieved. There was an ~5 mm sessile polyp in the ascending colon. The polyp was removed with cold snare polypectomy and retrieved. There was an ~5 mm sessile polyp in the transverse colon. The polyp was removed with cold snare polypectomy and retrieved. There was an ~2 mm sessile polyp in the rectum. The polyp was removed with cold biopsy forceps and retrieved. Internal hemorrhoids were visualized on retro-flexion view. IMPRESSION: 1. Multiple colon polyps removed with snare polypectomy and cold biopsy forceps as above. 2. Internal hemorrhoids RECOMMENDATIONS: -follow-up pathology results -repeat colonoscopy in 3 years for surveillance
[2021-02-26] MEDS ORDERED: WATER FOR IRRIG STERILE 1,000 ML BOTTLE ONE (09:34)
[2021-02-26] MEDS ORDERED: WATER FOR IRRIG STERILE 250 ML BOTTLE IR ONE (09:34)
[2021-02-26 09:46] VITALS: BP 119/58
--- NOTE | 2021-02-26 17:21 | Post Anesthesia Evaluation ---
- Post Anesthesia Evaluation Patient Participated: Yes Airway Patent: Yes Stable Respiratory Function: Yes Nausea/Vomiting: No Temp > 96.8F: Yes Pain Manageable: Yes Adequeate Hydration: Yes Anesthesia Complications: No Block Receding Appropriately: Not Applicable Patient on Ventilator: No
== END 2021-02-26 09:30 | disposition home or self-care (01) ==
LOC: GIO 07:18
PROVIDERS: ATTEND Internal Medicine Gastroenterology
DX: Z12.11 Encounter for screening for malignant neoplasm of colon (principal); D12.8 Benign neoplasm of rectum; K64.8 Other hemorrhoids; K63.89 Other specified diseases of intestine; I10 Essential (primary) hypertension; E03.9 Hypothyroidism, unspecified; J45.909 Unspecified asthma, uncomplicated; E78.00 Pure hypercholesterolemia, unspecified; Z79.899 Other long term (current) drug therapy; Z98.890 Other specified postprocedural states
CPT/HCPCS: 45380; 45385; 88305; J2704; J3490; J7030; J7120; Q0162

== ENCOUNTER 2021-05-18 08:11 | Outpatient (CLI) | payer BC | END 2021-05-18 08:12 | disposition home or self-care (01) | LOC: MAMMO 08:11 | PROVIDERS: ATTEND Internal Medicine | DX: Z12.31 Encounter for screening mammogram for malignant neoplasm of breast (principal) | CPT/HCPCS: 77067 ==

== ENCOUNTER 2021-10-07 13:30 | Emergency (ER) | payer OTHER, BC ==
[2021-10-07 13:53] VITALS: BP 152/86
[2021-10-07] MEDS ORDERED: KETOROLAC 10 MG TAB PO ONE ×2 (14:41→19:00)
[2021-10-07] MEDS ORDERED: CYCLOBENZAPRINE 10 MG TAB PO ONE ×2 (14:42→19:00)
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
== END 2021-10-07 18:56 | disposition home or self-care (01) ==
LOC: ED 13:30
DX: M79.18 Myalgia, other site (principal); I10 Essential (primary) hypertension; J45.909 Unspecified asthma, uncomplicated; V89.2XXA Person injured in unspecified motor-vehicle accident, traffic, initial encounter; Y93.89 Activity, other specified; Y92.89 Other specified places as the place of occurrence of the external cause; Y99.8 Other external cause status
CPT/HCPCS: 99282